=== PATIENT | female | born 1965 | race Caucasian/White ===

== ENCOUNTER 2018-03-20 15:02 | Emergency (ER) | payer OTHER ==
--- NOTE | 2018-03-20 15:56 | RAD REPORT ---
EXAM DESCRIPTION: CT - Head Brain Wo Cont - 03/20/2018 3:48 pm CLINICAL HISTORY: Headache COMPARISON: 2013 TECHNIQUE: Computed axial tomography of the head was obtained. IV contrast was not requested. All CT scans are performed using dose optimization technique as appropriate and may include automated exposure control or mA/KV adjustment according to patient size. FINDINGS: An intracranial bleed is not seen . The ventricles are normal in caliber. No extra-axial fluid collection is noted. 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 Fluid within the sinuses/ mastoids is not seen. IMPRESSION: No acute intracranial abnormality is seen. If patient's symptoms persist MRI of the bra in would be recommended.
[2018-03-20] MEDS ORDERED: cloNIDine HCl 0.1 MG TAB ONE (16:14)
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
[2018-03-20 19:30] VITALS: TEMP 98.4
[2018-03-20 19:35] VITALS: BP 121/89; O2SAT 98
== END 2018-03-20 18:10 | disposition home or self-care (01) ==
LOC: ER 15:02
DX: I10 Essential (primary) hypertension (principal); F17.210 Nicotine dependence, cigarettes, uncomplicated; Z88.5 Allergy status to narcotic agent
CPT/HCPCS: 70450; 99284

== ENCOUNTER 2018-04-26 14:16 | Emergency (ER) | payer OTHER, SELFPAY ==
[2018-04-26] MEDS ORDERED: NA CHLORIDE 0.9% 1,000 ML ONE (15:13)
[2018-04-26 15:36] LABS: Absolute Lymphocytes (CBC) 1.5 K/uL (0.7-4.9); Absolute Monocytes 0.6 K/uL (0.1-1.3); Basophils % 1.1 % (0-1.3); Eosinophils % 2.1 % (0-4.4); Hematocrit 50.5 % (36.0-45.0); Lymphocytes % 20.9 % (15.3-44.8); MCH 31.4 pg (27.0-35.0); MCV 92.8 fL (80-100); MPV 10.1 fL (7.6-11.3); Monocytes % 8.4 % (3.3-12.3); RBC Red Blood Cell Count 5.44 M/uL (3.86-4.86)
[2018-04-26 15:37] LABS: Protime INR 1.03
--- NOTE | 2018-04-26 15:53 | RAD REPORT ---
EXAM DESCRIPTION: RAD - Chest Single View - 04/26/2018 3:39 pm CLINICAL HISTORY: Cough and congestion, hypertension COMPARISON: September 2009 TECHNIQUE: AP portable chest image was obtained 1519 hours . FINDINGS: Lungs are clear. Heart and vasculature are normal. No measurable pleural effusion and no p neumothorax. No acute bony abnormality seen. No acute aortic findings suspected. IMPRESSION: No acute cardiopulmonary process.
[2018-04-26 16:11] LABS: Bilirubin Direct 0.1 mg/dL (0-0.2); Bilirubin Total 0.6 mg/dL (0.2-1.0); Magnesium 2.2 mg/dL (1.8-2.4); Potassium 3.8 mmol/L (3.5-5.1); Protein, Total 8.1 g/dL (6.4-8.2); Troponin (Emerg Dept Use Only) 0.02 ng/mL (0.0-0.045)
[2018-04-26 16:11] LABS: Urine Blood TRACE (NEG); Urine Glucose NEGATIVE (NEG); Urine Protein 2+ (NEG)
[2018-04-26] MEDS ORDERED: CARVEDILOL 6.25 MG TAB ONE (16:16)
[2018-04-26] MEDS ORDERED: cloNIDine HCl 0.1 MG TAB ONE (16:16)
[2018-04-26] MEDS ORDERED: AMLODIPINE 5 MG TAB ONE (16:16)
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
[2018-04-26] MEDS ORDERED: LISINOPRIL 20 MG TAB ONE (17:35)
[2018-04-26] MEDS ORDERED: SMZ./TMP. 800/160 MG TABLET ONE (17:35)
[2018-04-26] MEDS ORDERED: CEFTRIAXONE/SWI 1gm 1 GM/10 ML SYR ONE (17:35)
[2018-04-26 18:03] VITALS: TEMP 98.8
[2018-04-26 18:08] VITALS: BP 152/96; O2SAT 100
--- NOTE | 2018-04-27 07:19 | EKG ---
Test Date: 2018-04-26 Test Time: 15:11:27 Management Retail Intern: DIDIER MEASUREMENT RESULTS: Intervals: Rate: 81 ME: 176 QRSD: 70 QT: 390 QTc: 453 [place]: P: 65 ME: 176 QRS: -52 T: 65 INTERPRETIVE STATEMENTS: Normal sinus rhythm Left axis deviation Abnormal ECG Compared to ECG 08/13/2013 22:26:28 Left-axis deviation now present Electronically Signed On 04-27-18 07:19:01 CONCRETE PUMP OPERATOR HELPER by Reinaldo Hedrick
== END 2018-04-26 17:51 | disposition home or self-care (01) ==
LOC: ER 14:16
DX: N17.8 Other acute kidney failure (principal); N30.90 Cystitis, unspecified without hematuria; E78.5 Hyperlipidemia, unspecified; F32.9 Major depressive disorder, single episode, unspecified; Z86.73 Personal history of transient ischemic attack (TIA), and cerebral infarction without residual deficits; Z88.5 Allergy status to narcotic agent
CPT/HCPCS: 36415; 71045; 80048; 80076; 81003; 81025; 83735; 83880; 84484; 85025; 85610; 93005; 96361; 96374; 99284; J0696; J7030

== ENCOUNTER 2020-06-27 14:16 | Emergency (ER) | payer OTHER ==
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
[2020-06-27 14:59] VITALS: BP 167/112; TEMP 97.1; O2SAT 99
== END 2020-06-27 14:52 | disposition left against medical advice (07) ==
LOC: ER 14:16
DX: R20.2 Paresthesia of skin (principal); Z53.21 Procedure and treatment not carried out due to patient leaving prior to being seen by health care provider
CPT/HCPCS: 99282